=== PATIENT | female | born 1950 | race Caucasian/White ===

== ENCOUNTER 2018-06-24 06:22 | Day surgery (SDC) | payer MEDICARE, SELFPAY ==
[2018-06-18 08:40] LABS: Bacteria 0 SEEN /hpf (None Seen); Mucous, Urine 0 SEEN /hpf (<or=2+); Red Blood Cells-Urine 0 SEEN /hpf (0-5); White Blood Cells 0 SEEN /hpf (0-5)
[2018-06-18 10:07] LABS: Color, Urine Yellow (Yellow); Glucose, Dipstick Normal (Normal); Ketone-Dipstick Negative (Negative); Leukocyte Esterase-Dipstick 25 /ul (Negative); Nitrite-Dipstick Negative (Negative); Occult Blood-Urine Negative /ul (Negative); Protein-Dipstick Negative (Negative); Urine Bilirubin Dipstick Negative (Negative); Urine Clarity Clear (Clear); Urine Urobilinogen Normal (Normal); Urine pH 6.5 (5.0 - 8.0)
[2018-06-18 10:13] LABS: Squamous Epithelial Cells - UA 0-5 SEEN /hpf (5-10)
[2018-06-24 06:54] VITALS: BP 137/60; PULSE 73; RESP 14; TEMP 37.1; O2SAT 96; BMI 27.4
[2018-06-24] MEDS: Ciprofloxacin 400 MG/200 ML BAG 200 MG IV (07:30)
--- NOTE | 2018-06-24 07:49 | DCINST_ITS ---
Discharge Diet: No Restrictions Discharge Activity: May not drive while taking narcotic pain medications., May Shower, - - no tub bathing for 4 weeks. Call your doctor if you observe: Fever of 101 or Higher, Inability to urinate, Inability to have a bowel movement, Using more than one pad per hour, Shortness of breath, Calf discomfort, Uncontrolled pain Allergies/Adverse Reactions: Allergies cephalexin [From Keflex] Allergy (Verified 06/24/18 06:53) Rash diphenhydramine [From Benadryl] Allergy (Verified 06/24/18 06:53) Rash nitrofurantoin [From Macrobid] Allergy (Verified 06/24/18 06:53) Other GI UPSET Sulfa (Sulfonamide Antibiotics) Allergy (Verified 06/24/18 06:53) Chest tightness sulfamethoxazole [From Bactrim] Allergy (Verified 06/24/18 06:53) Other trimethoprim [From Bactrim] Allergy (Verified 06/24/18 06:53) Other Medications to take at Discharge Ascorbic Acid [Vitamin C] 500 mg PO DAILY@0800 06/17/18 Cholecalciferol (Vitamin D3) [Vitamin D3] 2,000 unit PO DAILY 06/17/18 Estrogens, Conjugated [Premarin] 1 dose VAGINAL UD 06/17/18 Lactobacillus Combination No.4 [Probiotic] 1 each PO DAILY 06/17/18 Pyridoxine HCl [Vitamin B6] 100 mg PO DAILY 06/17/18 Vitamin E Acid Succinate [Vitamin E] 400 unit PO DAILY 06/17/18 Ciprofloxacin [Cipro] 500 mg PO BID 06/24/18 Oxycodone HCl/Acetaminophen [Percocet 5/325] 1 - 2 tab PO Q6H PRN PRN 7 Days # 30 tab 06/24/18 The following prescriptions were given: Oxycodone HCl/Acetaminophen [Percocet 5/325] 1 - 2 tab PO Q6H PRN PRN 7 Days # 30 tab PRN Reason: Pain Primary Care Physician: Sam Elizondo MD [Primary Care Provider] - Test Results: Test results from this visit will be discussed in further detail at your follow- up appointment, if applicable. Please Follow Up With: Hafsa Valenzuela MD - in 1 week, call for appt Proposed Discharge Date: 06/24/18
--- NOTE | 2018-06-24 08:00 | MASS_PTH ---
PATIENT: NIKOLAY MANRIQUEZ [place] [facility] [id number] AGE/SX: 67/F ROOM: RE06/24/[address]: Dr. Hafsa Valenzuela MD : 1950 BED: DIS: 06/24/2018 SPEC #: [id number] RECD: 06/24/18 09:07 STATUS: SD SUPRIYA #: [id number] ROYAL: 06/24/18 08:[address]: Hafsa Valenzuela DEPT: SURGICAL PATHOLOGY RECD BY: Joseph Moreau ENTERED: 06/24/18 09:35 SP TYPE: Mass OTHR DR: Dr. Sam Elizondo MD Tissues: Urethra, NOS Procedures: Surgery Specimen Level IV HEADER OPERATION: Cystoscopy, excision urethral meatal mass (caruncle) PRE-OP DIAGNOSIS: Urethral caruncle TISSUE SUBMITTED: Urethral caruncle MICROSCOPIC DIAGNOSIS Urethral caruncle, excision: Fragments of urothelial and squamous mucosa with chronic inflammation, consistent with urethral caruncle. DASHA:cirilo 06/25/18 MICROSCOPIC DESCRIPTION Slides are reviewed. GROSS DESCRIPTION Received in fixative is one container labeled with the patient's name and designated urethral caruncle. The specimen consists of three variable sized pieces of jordan-pink soft tissue that in aggregate measure 1 x 0.7 x 0.2 cm. The specimen is totally submitted in one cassette. / DASHA:cirilo 06/24/18 TC:3 CPT: 11103
[2018-06-24] MEDS: Estrogens,Conj. 1 Tube 1 DOSE (08:19)
[2018-06-24 08:34] VITALS: BP 103/64; BP 137/60; PULSE 62; RESP 16; TEMP 36.4; O2SAT 93
[2018-06-24 08:45] VITALS: BP 112/60; BP 137/60; PULSE 63; RESP 16; O2SAT 94
--- NOTE | 2018-06-24 08:49 | PCM.IMDPSTOP ---
Immediate Post-Op Note Date of Procedure: 06/24/18 Primary Surgeon/Physician: Hafsa Valenzuela MD professor of exercise science: Hafsa Valenzuela Pre-Operative Diagnosis: urethral caruncle, atrophic vaginitis Post-Operative Diagnosis: same Surgery/Procedure Performed:: excision urethral caruncle, cystoscopy Description of Surgical Findings:: large urethral caruncle removed from 6 Oclock position. Sutured with 4-0 chromic. Normal cystoscopy Estimated Blood Loss: 5cc Specimen's removed: urethral caruncle. Type of Anesthesia:: General Special Medications: cipro, lidocaine with epinephrine - Admit VTE Documentation VTE Present on Admission: Yes VTE Mechan Device Prophylaxis: SCD's VTE Pharm Prophylaxis ordered?: No Reason prophylaxis not ordered:: Treatment Not Indicated
--- NOTE | 2018-06-24 08:52 | OP.PN_ITS ---
Immediate Post-Op Note Date of Procedure: 06/24/18 Primary Surgeon/Physician: Hafsa Valenzuela MD electronics engineer: Hafsa Valenzuela Pre-Operative Diagnosis: urethral caruncle, atrophic vaginitis Post-Operative Diagnosis: same Surgery/Procedure Performed:: excision urethral caruncle, cystoscopy Description of Surgical Findings:: large urethral caruncle removed from 6 Oclock position. Sutured with 4-0 chromic. Normal cystoscopy Estimated Blood Loss: 5cc Specimen's removed: urethral caruncle. Type of Anesthesia:: General Special Medications: cipro, lidocaine with epinephrine - Admit VTE Documentation VTE Present on Admission: Yes VTE Mechan Device Prophylaxis: SCD's VTE Pharm Prophylaxis ordered?: No Reason prophylaxis not ordered:: Treatment Not Indicated
--- NOTE | 2018-06-24 08:56 | OP.PCM_ITS ---
Problem List (1) Urethral caruncle Status: Acute (2) Vaginal atrophy Status: Acute Report of Operation Date of Procedure: 06/24/18 Pre-Operative Diagnosis: urethral caruncle, atrophic vaginitis Post-Operative Diagnosis: same Surgery/Procedure Performed:: excision urethral caruncle, cystoscopy Description of Surgical Findings:: large urethral caruncle removed from 6 Oclock position. Sutured with 4-0 chromic. Normal cystoscopy elect equip maint eng: Hafsa Valenzuela Type of Anesthesia:: General Special Medications: cipro, lidocaine with epinephrine Specimen's removed: urethral caruncle. Estimated Blood Loss (mL): 5cc Description of Procedure: The patient is a 67-year-old female who presented to the office with discomfort related to sitting on a large urethral meatal caruncle. After discussing the risks benefits and alternatives, she agreed to proceed with surgical excision of the caruncle. The patient was taken to the operating room and placed on the operating room table. Anesthesia monitored the head neck area IV access and vital signs throughout the case. Once anesthesia was a probably administered patient was placed into dorsal lithotomy position was prepped and draped in usual sterile fashion. At this time the carbuncle was easily identified and grasped using an Allis clamp. It was excised using a 15 blade. The urethral mucosa with then closed using 4-0 chromic suture. Hemostasis was achieved. A cystourethroscopy was then performed using a 70? lens. The entire bladder mucosa was identified in addition to the urethra. There were no masses, areas of erythema, ulcerations, foreign bodies identified. The anatomy of the ureteral orifices is normal. The patient's bladder was emptied, the scope was removed. The patient was injected bilaterally with lidocaine with epinephrine. Estrace cream was applied. The patient was then awakened and taken to the recovery room in good condition. There are no complications during this procedure. Grafts/Implants Used: none - Complications none - Admit VTE Documentation VTE Present on Admission: Yes VTE Mechan Device Prophylaxis: SCD's VTE Pharm Prophylaxis ordered?: No Reason prophylaxis not ordered:: Treatment Not Indicated
[2018-06-24 09:00] VITALS: BP 122/63; BP 137/60; PULSE 62; RESP 16; O2SAT 95
[2018-06-24 09:15] VITALS: BP 137/60; PULSE 62; RESP 16; TEMP 36.6; O2SAT 97
[2018-06-24 10:17] VITALS: BP 137/60; BP 140/77; PULSE 62; RESP 18; TEMP 36.1; O2SAT 99
== END 2018-06-24 10:30 | disposition home or self-care (01) ==
LOC: SDC 06:23 → AC 06:28
PROVIDERS: Family Provider Family Medicine; PCP Family Medicine; Visit Provider Urology
PROC: 0TJB8ZZ Inspection of Bladder, Via Natural or Artificial Opening Endoscopic (ICD-10-PCS; CPT 52000; principal; 2018-06-24 07:45)
DX: N36.2 Urethral caruncle (principal); N95.2 Postmenopausal atrophic vaginitis; R39.15 Urgency of urination; R15.1 Fecal smearing; R35.1 Nocturia
CPT/HCPCS: 53265; 81001; 87077; 87086; 87088; 87186; 88305; J7120; J0744; J2405

== ENCOUNTER → 2018-09-12 08:22 | Outpatient (CLI) | payer MEDICARE, SELFPAY ==
[2018-09-12 10:31] LABS: Absolute Lymphocyte Count 1.77 X10^3/ul (0.83-4.51); Absolute Neutrophil Count 1.9 X10^3/uL (2.0-7.7); Basophil# 0.02 X10^3/uL; Basophil% 0.5 % (0-1); Eosinophil# 0.07 X10^3/uL; Eosinophils% 1.7 % (0-5); Hematocrit 43.8 % (37-47); Hemoglobin 15.2 g/dl (12.0-15.0); Lymphocyte # 1.77 X10^3/ul (4.0); Lymphocyte % 42.7 % (19-41); Mean Corp Hgb Conc 34.7 g/gl (32-36); Mean Corpuscular Hgb 29.9 pg (27.0-32.0); Mean Corpuscular Volume 86.2 fL (81-99); Mean Platelet Vol. 10.9 fl (6.2-12.0); Monocyte# 0.36 X10^3/uL; Monocyte% 8.7 % (0-10); Neutrophil # 1.93 X10^3/uL (2.7-7.7); Neutrophil % 46.4 % (47-70); Platelet Count 243 K/mm3 (150-450); RBC Distribution Width CV 13.1 % (11.6-14.6); RBC Distribution Width SD 40.9 fl (35.1-43.9); Red Blood Count 5.08 M/mm3 (4.2-5.4); White Blood Count 4.2 K/mm3 (4.4-11.0)
[2018-09-12 10:35] LABS: POSITIVE COUNT NO; POSITIVE DIFFERENTIAL NO; POSITIVE MORPHOLOGY NO
[2018-09-12 10:53] LABS: ALB/GLOB Ratio 1.1 RATIO (0.9-2.4); AST(SGOT) 16 U/L (15-37); Alanine Aminotransfer ALT/SGPT 26 U/L (13-56); Albumin, Serum 3.8 g/dL (3.2-5.0); Alkaline Phosphatase 71 U/L (45-117); Anion Gap 6 (5-15); BUN 11 mg/dL (7-18); BUN/Creat Ratio 14.5 RATIO (10-20); Calcium,Total 9.1 mg/dL (8.5-10.1); Chloride 106 mmol/L (98-107); Cholesterol 213 mg/dL (200); Creatinine, Serum 0.76 mg/dL (0.55-1.02); EST Glomerular Filtration Rate 81 mL/min (>60); Est Glom Filt Rate - Afr Amer 97 mL/min (>60); Globulin 3.6 g/dL (2.2-4.2); Glucose 91 mg/dL (74-106); High Density Lipoprotein 45 mg/dL; Potassium 3.8 mmol/L (3.5-5.1); Protein, Total 7.4 g/dL (6.4-8.2); Sodium Level 141 mmol/L (136-145); T4 Free Direct 1.11 ng/dL (0.76-1.46); Triglycerides 139 mg/dL; Very Low Density Lipoprotein 28 mg/dL (5-40); Vitamin D,25 Hydroxy 25.8 ng/mL (29.95-100.01)
== END ==
PROVIDERS: Family Provider Family Medicine; PCP Family Medicine; Referring Provider Family Medicine; Visit Provider Family Medicine
DX: E04.2 Nontoxic multinodular goiter (principal); E78.00 Pure hypercholesterolemia, unspecified; E55.9 Vitamin D deficiency, unspecified
CPT/HCPCS: 36415; 80053; 80061; 82306; 84439; 84443; 85025

== ENCOUNTER 2018-09-26 06:21 | Day surgery (SDC) | payer MEDICARE, SELFPAY ==
[2018-09-26] VITALS (9 sets, daily range): BP systolic 88–153; BP diastolic 54–78; PULSE 62–82; RESP 16; TEMP 36–36.9; O2SAT 92–100; BMI 27.3
--- NOTE | 2018-09-26 07:30 | COLBX_PTH ---
PATIENT: NIKOLAY MANRIQUEZ LOC: [facility] U#:[id number] AGE/SX: 67/F ROOM: RE09/26/[address]: Dr. Gabe Colón MD : 1950 BED: DIS: 09/26/2018 SPEC #: [id number] RECD: 09/26/18 11:37 STATUS: SD SUPRIYA #: [id number] ROYAL: 09/26/18 07:[address]: Gabe Colón DEPT: SURGICAL PATHOLOGY RECD BY: Saúl Todd ENTERED: 09/26/18 11:37 SP TYPE: COLON BX OTHR DR: Dr. Phillip Baer MD Tissues: A - Ascending colon B - COLON BIOPSY Procedures: Surgery Specimen Level IV HEADER OPERATION: Colonosocpy PRE-OP DIAGNOSIS: Screening TISSUE SUBMITTED: A - Ascending colon polyp, B - Biopsy of hepatic flexure polyp MICROSCOPIC DIAGNOSIS A. FNA colon polyp, biopsy: Fragments of tubular adenoma. Fragments of fecal material. B. Hepatic flexure polyp, biopsy: Fragments of tubular adenoma. DASHA:deny 09/29/18 MICROSCOPIC DESCRIPTION Slides are reviewed. GROSS DESCRIPTION A. Received is one container labeled with the patient name and designated ascending colon polyp. The specimen consists of multiple irregular fragments mixed with fecal material that in aggregate measure 1.5 x 0.2 x 0.1 cm. The specimen is totally submitted in one cassette. B. Received is one container labeled with the patient name and designated biopsy of the hepatic flexure polyp. The specimen consists of two irregular fragments of light jordan soft tissue that in aggregate measure 0.3 x 0.2 x 0.1 cm. The specimen is totally submitted in one cassette. / DASHA:deny 09/26/18 TC: 1 CPT: 80584 x2
--- NOTE | 2018-09-26 07:36 | PCM.HP.STD ---
History of Present Illness Date of Admission: 09/26/18 The patient is a 67 year old F screening for intestinal cancer. She has some fecal incontinence. She has a brother who had colon cancer. She has never previously had a colonoscopy. She denies any abdominal pain bright red blood per rectum or melena. She denies any cardiac pulmonary or renal disease. Never had any DVT. Past Medical History Allergies sulfamethoxazole [From Bactrim] Allergy (Unknown, Verified 09/23/18 13:52) Other trimethoprim [From Bactrim] Allergy (Unknown, Verified 09/23/18 13:52) Other cephalexin [From Keflex] Allergy (Verified 09/23/18 13:52) Rash diphenhydramine [From Benadryl] Allergy (Verified 09/23/18 13:52) Rash nitrofurantoin [From Macrobid] Allergy (Verified 09/23/18 13:52) Other GI UPSET Sulfa (Sulfonamide Antibiotics) Allergy (Verified 09/23/18 13:52) Chest tightness Home Medications: Ambulatory Orders Medication Instructions Recorded Ascorbic Acid [Vitamin C] 500 mg PO DAILY@0800 06/17/18 Cholecalciferol (Vitamin D3) 4,000 unit PO LUNCH 06/17/18 [Vitamin D3] Estrogens, Conjugated [Premarin] 1 dose VAGINAL UD 06/17/18 Lactobacillus Combination No.4 1 each PO DAILY 06/17/18 [Probiotic] Pyridoxine HCl [Vitamin B6] 100 mg PO QWEEK 06/17/18 Vitamin E Acid Succinate [Vitamin 400 unit PO DAILY 06/17/18 E] Garlic Extract [Garlipure] 600 mg PO DAILY 09/23/18 Smoking Status: Never smoker Review of Systems Constitutional: Denies: Anorexia HEENT: Denies: Difficulty Swallowing Cardiovascular: Denies: Chest Pain Respiratory: Denies: Cough Gastrointestinal: Denies: Abdominal Pain Endocrine: Denies: Change in Body Habitus VTE Information - Inpt Only VTE Present on Admission: No - Physical Exam General: Alert, Oriented x3, Cooperative, No apparent distress HEENT: Atraumatic Oral: Moist Mucosa Neck: Supple Lungs: Clear to auscultation Cardiovascular: Regular rate, Regular Rhythm Abdomen: Bowel Sounds Present, Soft, Non Tender Extremities: No clubbing Skin: No rashes Musculoskeletal: No Tenderness to Palpation of Joints or Extremities Neurological: Cranial nerves II-XII grossly intact Psych/Mental Status: Normal Affect Vital Signs Temp Pulse Resp BP Pulse Ox 98.4 F 82 16 135/60 H 99 09/26/18 06:53 09/26/18 06:53 09/26/18 06:53 09/26/18 06:53 09/26/18 06:53 Oxygen Delivery Method Room Air Weight: 158 lb 15.253 oz Body Mass Index (BMI) 27.3 Assessment/Plan All Active Problems Urethral caruncle (Acute) Vaginal atrophy (Acute) I recommend a colonoscopy with possible biopsy or polypectomy is indicated. She is aware of the technique, benefits, risks, alternatives. She has had an opportunity to ask and have questions answered. She presents via our open access program. Gabe Colón M.D., F.A.C.S.
--- NOTE | 2018-09-26 08:12 | OP.ENDO_ITS ---
Patient Name: Gosia Krishna Procedure Date: 09/26/2018 7:30 AM Date of : 1950 Age: 67 Procedure: Colonoscopy Indications: Family history of colon cancer in a first-degree relative Providers: Gabe Colón MD Referring MD: Gabe Colón MD Medicines: Midazolam 3.5 mg IV, Meperidine 100 mg IV Patient Profile: Last Colonoscopy: none. The patient's first colonoscopy is today. Complications: No immediate complications. Procedure: Pre-Anesthesia Assessment: - Prior to the procedure, a History and Physical was performed, and patient medications and allergies were reviewed. The patient's tolerance of previous anesthesia was also reviewed. The risks and benefits of the procedure and the sedation options and risks were discussed with the patient. All questions were answered, and informed consent was obtained. Prior Anticoagulants: The patient has taken no previous anticoagulant or antiplatelet agents. ASA Grade Assessment: II - A patient with mild systemic disease. After reviewing the risks and benefits, the patient was deemed in satisfactory condition to undergo the procedure. After I obtained informed consent, the scope was passed under direct vision. Throughout the procedure, the patient's blood pressure, pulse, and oxygen saturations were monitored continuously. The colonoscope was introduced through the anus and advanced to the cecum, identified by appendiceal orifice and ileocecal valve. The colonoscopy was performed without difficulty. The patient tolerated the procedure well. The quality of the bowel preparation was good. The ileocecal valve was photographed. Moderate Sedation: Moderate (conscious) sedation was personally administered by the endoscopist. The following parameters were monitored: oxygen saturation, heart rate, blood pressure, and response to care. Total physician intraservice time was 15 minutes. Scope In: 7:43:03 AM Scope Withdrawal Time 0 hours 16 minutes 46 seconds Scope Out: 8:05:49 AM Total Procedure Duration Time 0 hours 22 minutes 46 seconds Findings: The digital rectal exam findings include non-thrombosed external hemorrhoids, non-thrombosed internal hemorrhoids and internal hemorrhoids that prolapse with straining, but spontaneously regress to the resting position (Grade II). Pertinent negatives include normal sphincter tone. A 8 mm polyp was found in the mid ascending colon. The polyp was sessile. The polyp was removed with a hot snare. The polyp was removed with a saline injection-lift technique using a hot snare. Resection and retrieval were complete. A 4 mm polyp was found in the hepatic flexure. The polyp was sessile. The polyp was removed with a cold biopsy forceps. Resection and retrieval were complete. Multiple diverticula were found in the sigmoid colon. Impression: - Non-thrombosed external hemorrhoids, non-thrombosed internal hemorrhoids and internal hemorrhoids that prolapse with straining, but spontaneously regress to the resting position (Grade II) found on digital rectal exam. - One 8 mm polyp in the mid ascending colon, removed with a hot snare and removed using injection-lift and a hot snare. Resected and retrieved. - One 4 mm polyp at the hepatic flexure, removed with a cold biopsy forceps. Resected and retrieved. - Diverticulosis in the sigmoid colon. Recommendation: - Discharge patient to home. - Resume previous diet. - Continue present medications. - Telephone my office for pathology results in 1 week. - Repeat colonoscopy in 3 years for surveillance. Procedure Code(s): --- Professional --- 18002, Colonoscopy, flexible; with removal of tumor(s), polyp(s), or other lesion(s) by snare technique 22609, Colonoscopy, flexible; with directed submucosal injection(s), any substance 94066, 59, Colonoscopy, flexible; with biopsy, single or multiple 42993, 59, Moderate sedation services provided by the same physician or other qualified health manager of care performing the diagnostic or therapeutic service that the sedation supports, requiring the presence of an independent trained observer to assist in the monitoring of the patient's level of consciousness and physiological status; initial 15 minutes of intraservice time, patient age 5 years or older Diagnosis Code(s): --- Professional --- K64.1, Second degree hemorrhoids K64.4, Residual hemorrhoidal skin tags D12.2, Benign neoplasm of ascending colon D12.3, Benign neoplasm of transverse colon (hepatic flexure or splenic flexure) Z80.0, Family history of malignant neoplasm of digestive organs K57.30, Diverticulosis of large intestine without perforation or abscess without bleeding CPT copyright 2017 [employer]. All rights reserved. The codes documented in this report are preliminary and upon business machine operator review may be revised to meet current compliance requirements. Gabe Colón MD 09/26/2018 8:11:49 AM This report has been signed electronically. Number of Addenda: 0 Note Initiated On: 09/26/2018 7:30 AM
== END 2018-09-26 09:51 | disposition home or self-care (01) ==
LOC: EN 06:21 → AC 06:22
PROVIDERS: Family Provider Family Medicine; PCP Family Medicine; Referring Provider Surgery; Visit Provider Surgery
PROC: 0DJD8ZZ Inspection of Lower Intestinal Tract, Via Natural or Artificial Opening Endoscopic (ICD-10-PCS; CPT 45378; principal; 2018-09-26 07:25)
DX: D12.2 Benign neoplasm of ascending colon (principal); D12.3 Benign neoplasm of transverse colon; K64.1 Second degree hemorrhoids; K64.4 Residual hemorrhoidal skin tags; K57.30 Diverticulosis of large intestine without perforation or abscess without bleeding; Z80.0 Family history of malignant neoplasm of digestive organs
CPT/HCPCS: 45380; 45381; 45385; 88305; 99152; 99153; J7120

== ENCOUNTER → 2018-09-29 10:45 | Outpatient (CLI) | payer MEDICARE, SELFPAY ==
--- NOTE | 2018-09-29 10:45 | VUL_PTH ---
PATIENT: NIKOLAY MANRIQUEZ LOC: [facility] U#:[id number] AGE/SX: 74/F ROOM: RE09/29/[address]: Dr. Magalys Ortiz MD : 1950 BED: DIS: SPEC #: [id number] RECD: 09/29/18 15:38 STATUS: SD SUPRIYA #: [id number] ROYAL: 09/29/18 10:[address]: Magalys Ortiz DEPT: SURGICAL PATHOLOGY RECD BY: Joseph Moreau ENTERED: 09/30/18 10:22 SP TYPE: VULVA BX OTHR DR: Dr. Phillip Baer MD Tissues: Vulva, NOS Procedures: Surgery Specimen Level IV HEADER OPERATION: Punch biopsy PRE-OP DIAGNOSIS: Skin irritation TISSUE SUBMITTED: Labial biopsy MICROSCOPIC DIAGNOSIS Labial lesion, punch biopsy: Dermal chronic inflammation. Negative for malignancy. SJ:sp 10/01/18 MICROSCOPIC DESCRIPTION Slides are reviewed. GROSS DESCRIPTION Received in fixative is one container labeled with the patient's name and designated labial lesion. The specimen consists of a piece of jordan white skin measuring 0.3 x 0.3 x 0.1 cm in one cassette. DASHA:deny 09/30/18 TC: 3 CPT: 51483
== END ==
PROVIDERS: Family Provider Family Medicine; PCP Family Medicine; Referring Provider Obstetrics & Gynecology; Visit Provider Obstetrics & Gynecology
DX: L98.9 Disorder of the skin and subcutaneous tissue, unspecified (principal)
CPT/HCPCS: 88305

== ENCOUNTER → 2019-04-09 11:42 | Outpatient (CLI) | payer MEDICARE, SELFPAY ==
[2018-09-26 06:53] VITALS: BMI 27.3
[2019-04-09 14:24] LABS: Anion Gap 4 (5-15); BUN 9 mg/dL (7-18); BUN/Creat Ratio 12.8 RATIO (10-20); Calcium,Total 9.2 mg/dL (8.5-10.1); Chloride 108 mmol/L (98-107); EST Glomerular Filtration Rate 88 mL/min (>60); Est Glom Filt Rate - Afr Amer 107 mL/min (>60); Glucose 92 mg/dL (74-106); Potassium 4.1 mmol/L (3.5-5.1); Sodium Level 140 mmol/L (136-145)
[2019-04-09 14:38] LABS: Vitamin D,25 Hydroxy 38.6 ng/mL (29.95-100.01)
== END ==
PROVIDERS: Family Provider Family Medicine; PCP Family Medicine; Referring Provider Family Medicine; Visit Provider Family Medicine
DX: E55.9 Vitamin D deficiency, unspecified (principal); E04.2 Nontoxic multinodular goiter
CPT/HCPCS: 36415; 80048; 82306

== ENCOUNTER → 2019-10-07 09:50 | Outpatient (CLI) | payer MEDICARE, SELFPAY ==
[2019-10-07 12:51] LABS: Vitamin D,25 Hydroxy 31.5 ng/mL (29.95-100.01)
[2019-10-07 12:52] LABS: Cholesterol 238 mg/dL (200); Creatinine, Serum 0.72 mg/dL (0.55-1.02); EST Glomerular Filtration Rate 86 mL/min (>60); Est Glom Filt Rate - Afr Amer 104 mL/min (>60); High Density Lipoprotein 37 mg/dL; Thyroid Stim Hormone (TSH) 1.22 uIU/mL (0.358-3.74); Triglycerides 264 mg/dL; Very Low Density Lipoprotein 53 mg/dL (5-40)
== END ==
PROVIDERS: Family Provider Family Medicine; PCP Family Medicine; Referring Provider Family Medicine; Visit Provider Family Medicine
DX: E55.9 Vitamin D deficiency, unspecified (principal); E78.00 Pure hypercholesterolemia, unspecified
CPT/HCPCS: 36415; 80061; 82306; 82565; 84443

== ENCOUNTER → 2020-03-30 10:13 | Outpatient (CLI) | payer MEDICARE, SELFPAY ==
--- NOTE | 2020-03-30 10:16 | BI_ITS ---
MAMMOGRAPHY - BILATERAL SCREENING REASON FOR EXAM: Female, 69 years old. Routine annual screening examination. PERTINENT HISTORY: Sister with breast cancer. TECHNIQUE: Digital bilateral breast brea (3D mammographic acquisition) in the CC and MLO projections. 2-D mediolateral oblique (MLO) and craniocaudad (CC) views of both breasts were obtained. CAD: Full Field Digital Mammography with Computer Added Detection was performed. COMPARISON: Comparison is made with prior examination dated April 01, 2018. FINDINGS: Breast Composition: The breasts are heterogeneously dense, which may obscure small masses. There are no dominant masses or suspicious calcifications. Stable calcifications in the deep axillary region of the left breast. No other significant abnormalities are identified. There has been no significant change since the prior study. BI/SCREEN MAMM (CAD) W/BREA BILAT IMPRESSION: Stable bilateral screening mammogram. Yearly follow-up mammogram recommended. (A) ASSESSMENT CATEGORY: BIRADS Category 2: Benign. A letter regarding these results will be sent to the patient by the facility within 30 days. Approximately 10% of breast cancers are not detected by mammography. A normal mammogram should not delay biopsy of a clinically suspicious abnormality. [id number] Electronically Signed: Booker Lundberg, at 12:25 EDT , Service support ,
== END ==
PROVIDERS: PCP Family Medicine; Referring Provider Family Medicine; Visit Provider Family Medicine
DX: Z12.31 Encounter for screening mammogram for malignant neoplasm of breast (principal); Z80.3 Family history of malignant neoplasm of breast
CPT/HCPCS: 77063; 77067

== ENCOUNTER → 2021-09-11 | Outpatient (CLI) | payer MEDICARE, SELFPAY | END | disposition home or self-care (01) | PROVIDERS: PCP Family Medicine; Visit Provider Family Medicine | DX: J06.9 Acute upper respiratory infection, unspecified (principal) | CPT/HCPCS: 87633; 87635; U0005; U0003 ==

== ENCOUNTER → 2022-05-30 | Outpatient (CLI) | payer MEDICARE, SELFPAY ==
[2022-05-30 12:23] LABS: Absolute Neutrophil Count 3.8 X10^3/uL (2.0-7.7); Basophil# 0.03 X10^3/uL; Basophil% 0.5 % (0-1); Eosinophil# 0.04 X10^3/uL; Eosinophils% 0.7 % (0-5); Hematocrit 45.2 % (37-47); Hemoglobin 15.2 g/dL (12.0-15.0); Lymphocyte % 29.7 % (19-41); Mean Corp Hgb Conc 33.6 g/dL (32-36); Mean Corpuscular Hgb 29.5 pg (27.0-32.0); Mean Corpuscular Volume 87.8 fL (81-99); Mean Platelet Vol. 11.5 fl (6.2-12.0); Monocyte# 0.41 X10^3/uL; Monocyte% 6.8 % (0-10); NRBC Flagged by Analyzer 0 % (0-5); Neutrophil # 3.77 X10^3/uL (2.7-7.7); Platelet Count 238 K/mm3 (150-450); RBC Distribution Width CV 12.4 % (11.6-14.6); RBC Distribution Width SD 39.9 fl (35.1-43.9); Red Blood Count 5.15 M/mm3 (4.2-5.4); White Blood Count 6.1 K/mm3 (4.4-11.0)
[2022-05-30 13:02] LABS: CRP < 2.90 mg/L (0.0-3.0); Creatinine, Serum 0.66 mg/dL (0.55-1.02); EST Glomerular Filtration Rate 94 mL/min (>60); Est Glom Filt Rate - Afr Amer 113 mL/min (>60)
== END | disposition home or self-care (01) ==
LOC: MFPLAB 10:39
PROVIDERS: PCP Family Medicine; Referring Provider Family Medicine; Visit Provider Family Medicine
DX: R59.0 Localized enlarged lymph nodes (principal)
CPT/HCPCS: 36415; 82565; 85025; 86140

== ENCOUNTER → 2022-06-04 | Outpatient (CLI) | payer MEDICARE, SELFPAY ==
[2022-06-04 12:51] LABS: Syphilis Antibodies Non-reactive
[2022-06-04 14:32] LABS: Internal QC Validated? YES +Cl - CLEAR BKGD; Monotest Negative (Negative)
[2022-06-07 15:42] LABS: Mumps Antibody,IgG > 300.0 AU/mL (Immune >10.9)
== END | disposition home or self-care (01) ==
LOC: MFPLAB 10:06
PROVIDERS: PCP Family Medicine; Visit Provider Family Medicine
DX: R59.0 Localized enlarged lymph nodes (principal)
CPT/HCPCS: 36415; 86308; 86735; 86780

== ENCOUNTER → 2023-01-11 | Outpatient (CLI) | payer MEDICARE, SELFPAY ==
--- NOTE | 2023-01-11 11:24 | RAD_ITS ---
STUDY: X-RAY - PARANASAL SINUSES REASON FOR EXAM: Female, 72 years old. sinus congestion TECHNIQUE: 3 view(s) of the paranasal sinuses were obtained. COMPARISON: None. FINDINGS: Normal visualized frontal, maxillary, ethmoidal and sphenoid sinuses. Normal visualized facial bones. The soft tissue structures are unremarkable. RAD/Sinuses min 3 Views IMPRESSION: Normal x-rays of the paranasal sinuses. Electronically Signed: Abiel Browne MD at 17:33 EST ,
[2023-01-11 15:47] LABS: Basophil# 0.04 X10^3/uL; Basophil% 0.8 % (0-1); Eosinophil# 0.13 X10^3/uL; Eosinophils% 2.7 % (0-5); Hematocrit 44.8 % (37-47); Hemoglobin 15.3 g/dL (12.0-15.0); Mean Corp Hgb Conc 34.2 g/dL (32-36); Mean Corpuscular Hgb 30.3 pg (27.0-32.0); Mean Corpuscular Volume 88.7 fL (81-99); Mean Platelet Vol. 11.1 fl (6.2-12.0); Monocyte# 0.38 X10^3/uL; Monocyte% 7.9 % (0-10); NRBC Flagged by Analyzer 0 % (0-5); Neutrophil # 2.01 X10^3/uL (2.7-7.7); Neutrophil % 42.2 % (47-70); Platelet Count 261 K/mm3 (150-450); RBC Distribution Width CV 12.5 % (11.6-14.6); RBC Distribution Width SD 40.7 fl (35.1-43.9); Red Blood Count 5.05 M/mm3 (4.2-5.4); White Blood Count 4.8 K/mm3 (4.4-11.0)
[2023-01-11 16:07] LABS: ALB/GLOB Ratio 1.1 RATIO (0.9-2.4); AST(SGOT) 22 U/L (15-37); Alanine Aminotransfer ALT/SGPT 27 U/L (13-56); Albumin, Serum 3.9 g/dL (3.2-5.0); Alkaline Phosphatase 84 U/L (45-117); Anion Gap 8 (5-15); BUN 11 mg/dL (7-18); BUN/Creat Ratio 15.3 RATIO (10-20); Calcium,Total 9.2 mg/dL (8.5-10.1); Chloride 104 mmol/L (98-107); Cholesterol 238 mg/dL (200); Creatinine, Serum 0.72 mg/dL (0.55-1.02); EST Glomerular Filtration Rate 85 mL/min (>60); Est Glom Filt Rate - Afr Amer 102 mL/min (>60); Globulin 3.5 g/dL (2.2-4.2); Glucose 86 mg/dL (74-106); High Density Lipoprotein 40 mg/dL; Potassium 3.7 mmol/L (3.5-5.1); Protein, Total 7.4 g/dL (6.4-8.2); Sodium Level 139 mmol/L (136-145); Thyroid Stim Hormone (TSH) 0.85 uIU/mL (0.358-3.74); Triglycerides 224 mg/dL; Very Low Density Lipoprotein 45 mg/dL (5-40)
== END | disposition home or self-care (01) ==
LOC: MTLAB 11:20
PROVIDERS: PCP Family Medicine; Referring Provider Family Medicine; Visit Provider Family Medicine
DX: Z00.00 Encounter for general adult medical examination without abnormal findings (principal); D12.6 Benign neoplasm of colon, unspecified; E78.00 Pure hypercholesterolemia, unspecified; R09.81 Nasal congestion
CPT/HCPCS: 36415; 70220; 80053; 80061; 84443; 85025

== ENCOUNTER 2023-04-02 05:19 | Day surgery (SDC) | payer MEDICARE, SELFPAY ==
[2023-04-02] VITALS (12 sets, daily range): BP systolic 83–161; BP diastolic 48–88; PULSE 66–82; RESP 14–16; TEMP 36.6–36.7; O2SAT 93–98; BMI 29.1
[2023-04-02] MEDS: Lactated Ringers 1,000 ML 15 ML IV (05:55)
--- NOTE | 2023-04-02 06:04 | PCM.HP.STD ---
[facility] - General General Date of Service: 04/02/23 Chief Complaint: Personal history of colon polyps [facility] Yvette MANRIQUEZ, is a 72 F who presents via open access today. 2018 did a colonoscopy for her and removed 2 polyps. She has a family history of the brother who had colon cancer. She has no specific concerns or complaints today. [facility] Medical History (Updated 04/02/23 @ 06:[address] Gabe Colón MD) Diverticulosis High cholesterol History of stress test Hx of adenomatous polyp of colon Non-smoker Post-menopausal Wears dentures Wears glasses Home Medications ascorbic acid (vitamin C) 500 mg tablet (Vitamin C) 500 mg PO DAILY@0800 supplement 06/17/18 [History Last Taken Unknown] cholecalciferol (vitamin D3) 50 mcg (2,000 unit) capsule (Vitamin D3) 4,000 unit PO LUNCH supplement 06/17/18 [History Last Taken Unknown] lactobacillus combination no.4 3 billion cell capsule (Probiotic) 1 ea PO DAILY supplement 06/17/18 [History Last Taken Unknown] vitamin E succinate 268 mg (400 unit) tablet 400 unit PO DAILY supplement 06/17/18 [History Last Taken Unknown] garlic extract 600 mg tablet (Garlipure) 600 mg PO DAILY cholesterol 09/23/18 [History Last Taken Unknown] fish, borage, flaxseed oils-omega 3,6,9 comb no.1 1,200 mg capsule ([place] 3-6-9) 1 cap PO DAILY 02/22/23 [History Last Taken Unknown] Allergy/AdvReac Type Severity Reaction Status Date / Time sulfamethoxazole Allergy Unknown Other Verified 04/02/23 05:51 [From Bactrim] trimethoprim [From Bactrim] Allergy Unknown Other Verified 04/02/23 05:51 cephalexin [From Keflex] Allergy Rash Verified 04/02/23 05:51 diphenhydramine Allergy Rash Verified 04/02/23 05:51 [From Benadryl] nitrofurantoin Allergy Other Verified 04/02/23 05:51 [From Macrobid] Sulfa (Sulfonamide Allergy Chest Verified 04/02/23 05:51 Antibiotics) tightness Family History (Updated 02/22/23 @ 14:19 by Callie Foster) Brother Colon cancer Sister Breast cancer Father CKD (chronic kidney disease) Dialysis patient Mother Hx of CABG Diabetes Glaucoma Surgical History History of colonoscopy Social History (Updated 02/22/23 @ 14:21 by Callie Foster) household members: other details: 2 sisters housing: house current occupational status: employed Smoking Status: Never smoker alcohol intake: never ROS Constitutional Constitutional: Reports systems reviewed and no addt'l complaints, except as documented Cardiovascular Cardiovascular: Denies chest pain Respiratory/Chest Respiratory/Chest: Denies shortness of breath at rest Gastrointestinal Gastrointestinal: Denies abdominal pain, change in bowel habits, hematochezia or melena Vital Signs Vital Signs Vital Signs: 04/02/23 05:52 04/02/23 05:52 Temperature 97.8 F Temperature Source Temporal Pulse Rate 81 Respiratory Rate 16 Respiratory Pattern Normal Blood Pressure 143/64 H Blood Pressure Mean 90 Blood Pressure Source Monitor Blood Pressure Position Sitting Blood Pressure Location Right Arm Pulse Ox 97 Oxygen Delivery Method Room Air Weight Weight: 175 lb 0.752 oz Body Mass Index (BMI) 29.1 Physical Exam Const alert, oriented x3 and no apparent distress General Appearance: cooperative and comfortable Eyes General Eye: normal appearance of both eyes Neck General: normal visual inspection Chest inspection of chest normal Resp Effort and Inspection: able to speak in complete sentences and symmetric chest movement Auscultation: clear to auscultation bilaterally Cardio regular rate and regular rhythm GI soft to palpation, non-tender and non-distended Extremity no calf tenderness Neuro oriented x3 Psych thought process normal Assessment & Plan Assessment/Plan (1) Hx of adenomatous polyp of colon: PLAN: The patient presents via open access today for a colonoscopy with possible biopsy or polypectomy as indicated. She is aware of the technique, benefit, risk, alternatives. She has had an opportunity to ask and have questions answered. We will proceed as noted. Previous colonoscopy September 2018 Gabe Colón M.D., F.A.C.S.
[2023-04-02] MEDS: Midazolam 5 MG/ML Syringe (06:30)
--- NOTE | 2023-04-02 07:00 | OP.COLON_ITS ---
Patient Name: Gosia Krishna Procedure Date: 04/02/2023 6:31 AM Date of : 1950 Age: 72 Procedure: Colonoscopy Indications: High risk colon cancer surveillance: Personal history of colonic polyps Providers: Gabe Colón MD Referring MD: Gabe Colón MD Medicines: Midazolam 4.5 mg IV, Meperidine 100 mg IV Patient Profile: Last Colonoscopy: September 2018. Complications: No immediate complications. Procedure: Pre-Anesthesia Assessment: - Prior to the procedure, a History and Physical was performed, and patient medications and allergies were reviewed. The patient's tolerance of previous anesthesia was also reviewed. The risks and benefits of the procedure and the sedation options and risks were discussed with the patient. All questions were answered, and informed consent was obtained. Prior Anticoagulants: The patient has taken no previous anticoagulant or antiplatelet agents. ASA Grade Assessment: II - A patient with mild systemic disease. After reviewing the risks and benefits, the patient was deemed in satisfactory condition to undergo the procedure. After I obtained informed consent, the scope was passed under direct vision. Throughout the procedure, the patient's blood pressure, pulse, and oxygen saturations were monitored continuously. The Colonoscope was introduced through the anus and advanced to the cecum, identified by appendiceal orifice and ileocecal valve. The colonoscopy was somewhat difficult due to a tortuous colon. Successful completion of the procedure was aided by applying abdominal pressure. The patient tolerated the procedure well. The quality of the bowel preparation was good. The ileocecal valve and the appendiceal orifice were photographed. Moderate Sedation: Moderate (conscious) sedation was personally administered by the endoscopist. The following parameters were monitored: oxygen saturation, heart rate, blood pressure, and response to care. Total physician intraservice time was 15 minutes. Scope In: 6:37:56 AM Scope Withdrawal Time 0 hours 7 minutes 29 seconds Scope Out: 6:55:28 AM Total Procedure Duration Time 0 hours 17 minutes 32 seconds Findings: The digital rectal exam findings include non-thrombosed external hemorrhoids, non-thrombosed internal hemorrhoids and internal hemorrhoids that prolapse with straining, but spontaneously regress to the resting position (Grade II). The colon (entire examined portion) was moderately tortuous. Advancing the scope required changing the patient to a supine position and using manual pressure. The exam was otherwise without abnormality. Impression: - Non-thrombosed external hemorrhoids, non-thrombosed internal hemorrhoids and internal hemorrhoids that prolapse with straining, but spontaneously regress to the resting position (Grade II) found on digital rectal exam. - Tortuous colon. - The examination was otherwise normal. - No specimens collected. Recommendation: - Discharge patient to home. - Resume previous diet. - Continue present medications. - Repeat colonoscopy in 5 years for surveillance. Procedure Code(s): --- Professional --- 71744, Colonoscopy, flexible; diagnostic, including collection of specimen(s) by brushing or washing, when performed (separate procedure) 74753, 59, Moderate sedation services provided by the same physician or other qualified health day care attendant performing the diagnostic or therapeutic service that the sedation supports, requiring the presence of an independent trained observer to assist in the monitoring of the patient's level of consciousness and physiological status; initial 15 minutes of intraservice time, patient age 5 years or older Diagnosis Code(s): --- Professional --- Z86.010, Personal history of colonic polyps K64.1, Second degree hemorrhoids K64.4, Residual hemorrhoidal skin tags Q43.8, Other specified congenital malformations of intestine CPT copyright 2017 [employer]. All rights reserved. The codes documented in this report are preliminary and upon fire support specialist review may be revised to meet current compliance requirements. Gabe Colón MD 04/02/2023 7:00:00 AM This report has been signed electronically. Number of Addenda: 0 Note Initiated On: 04/02/2023 6:31 AM
--- NOTE | 2023-04-02 07:01 | OP.CCLET_ITS ---
04/02/2023 Phillip Baer [address] [facility] [address] [place] [address] Re : Colonoscopy procedure for Gosiahank Krishna Dear Dr. Baer This procedure was performed on Sunday, April 02, 2023. My impressions and recommendations are as follows: Impressions : - Non-thrombosed external hemorrhoids, non-thrombosed internal hemorrhoids and internal hemorrhoids that prolapse with straining, but spontaneously regress to the resting position (Grade II) found on digital rectal exam. - Tortuous colon. - The examination was otherwise normal. - No specimens collected. Recommendations : - Discharge patient to home. - Resume previous diet. - Continue present medications. - Repeat colonoscopy in 5 years for surveillance. My findings are described in the full procedure note, which is enclosed. If I can be of further assistance, please feel free to contact me at Doctor phone number(s): Work: . Sincerely, Gabe Colón MD 04/02/2023 7:00:00 AM This report has been signed electronically.
== END 2023-04-02 08:59 | disposition home or self-care (01) ==
LOC: EN 05:20 → AC 05:21
PROVIDERS: PCP Family Medicine; Referring Provider Family Medicine; Visit Provider Surgery
PROC: 0DJD8ZZ Inspection of Lower Intestinal Tract, Via Natural or Artificial Opening Endoscopic (ICD-10-PCS; CPT 45378; principal; 2023-04-02 06:25)
DX: Q43.8 Other specified congenital malformations of intestine (principal); K64.1 Second degree hemorrhoids; K64.4 Residual hemorrhoidal skin tags; Z86.010 Personal history of colon polyps; Z80.0 Family history of malignant neoplasm of digestive organs
CPT/HCPCS: 45378; 99152; 99153; J7120

== ENCOUNTER → 2023-10-29 | Outpatient (CLI) | payer MEDICARE, SELFPAY ==
--- NOTE | 2023-11-03 16:29 | STRESSREP_ITS ---
Stress Test Report Date: 10/29/2023 Procedure: Exercise tolerance test Indications: Chest pain Consent: Per the patient Procedure: The patient exercised on a Oc protocol for 3 minutes achieving a peak heart rate of 137 bpm (92% predicted maximal heart rate) with a peak blood pressure 154/72 mmHg and a peak MET capacity of approximately 4.6 MET's. The baseline ECG demonstrated normal sinus rhythm. The peak exercise ECG demonstrated no significant ischemic changes. [There were no cardiac dysrhythmias pretest, during exercise, or recovery]. The functional capacity was considered normal for age. The patient had no complaint of chest discomfort during exercise or recovery. The examination was discontinued secondary to leg discomfort. Impression: 1. Technically adequate (percent predicted maximal heart rate greater than 85%) exercise tolerance test 2. Stress test is negative for exercise-induced chest pain. 3. Stress test test is negative for exercise-induced EKG changes of ischemia. 4. Functional capacity is normal for age This note was generated with [employer] software. It may contain incorrect words, spelling, and punctuation that were not noted in checking the note before signing.
== END | disposition home or self-care (01) ==
PROVIDERS: PCP Family Medicine; Referring Provider Family Medicine; Visit Provider Family Medicine
DX: R07.89 Other chest pain (principal)
CPT/HCPCS: 93017

== ENCOUNTER → 2025-05-12 | Outpatient (CLI) | payer MEDICARE, SELFPAY ==
[2025-05-12 12:37] LABS: Absolute Lymphocyte Count 2.33 X10^3/uL (0.83-4.51); Absolute Neutrophil Count 1.9 X10^3/uL (2.0-7.7); Basophil# 0.02 X10^3/uL; Basophil% 0.4 % (0-1); Eosinophil# 0.08 X10^3/uL; Eosinophils% 1.6 % (0-5); Hematocrit 41.6 % (37-47); Hemoglobin 14.1 g/dL (12.0-15.0); Lymphocyte # 2.33 X10^3/ul (0.83-4.51); Lymphocyte % 47.8 % (19-41); Mean Corp Hgb Conc 33.9 g/dL (32-36); Mean Corpuscular Hgb 29.9 pg (27.0-32.0); Mean Corpuscular Volume 88.1 fL (81-99); Monocyte# 0.57 X10^3/uL; Monocyte% 11.7 % (0-10); NRBC Flagged by Analyzer 0 % (0-5); Neutrophil # 1.86 X10^3/uL (2.7-7.7); Neutrophil % 38.3 % (47-70); Platelet Count 243 K/mm3 (150-450); RBC Distribution Width CV 12.7 % (11.6-14.6); Red Blood Count 4.72 M/mm3 (4.2-5.4); White Blood Count 4.9 K/mm3 (4.4-11.0)
[2025-05-12 13:30] LABS: Anion Gap 11 (5-15); BUN 12 mg/dL (4-19); Calcium,Total 9.5 mg/dL (7.6-11.0); Carbon Dioxide 23.8 mmol/L (21.0-32.0); Chloride 104 mmol/L (98-108); Creatinine, Serum 0.71 mg/dL (0.70-1.20); EST Glomerular Filtration Rate 90 (>60); Glucose 98 mg/dL (70-99); Potassium 3.9 mmol/L (3.3-5.1); Sodium Level 139 mmol/L (133-145)
--- OUTSIDE RECORDS SUMMARY | 2025-05-12 20:40 | XMS RPT_ITS | CCD ---
Author Organization [facility] Care Team Providers Care Photographer Aerial Name Role Phone Miguelito Barbour Attending Unavailable Phillip Baer Referring Unavailable Phillip Baer Primary Care Unavailable Allergies Allergy Classification Reported Allergen(s) Allergy Type Date of Onset Reaction(s) Facility (4 sources) Cephalexin Drug Allergy 09-23-20 Rash [facility] (4 sources) diphenhydrAMINE Drug Allergy 09-23-20 18 [facility] (4 sources) Nitrofurantoin Drug Allergy 09-23-20 18 Other [facility] (4 sources) Sulfamethoxazole Drug Allergy 09-23-20 18 Other [facility] (5 sources) Sulfonamides (Antibiotic); Translations: [Sulfa (Sulfonamide Antibiotics)] Allergy to substance 09-23-20 Chest tightness [facility] (4 sources) Trimethoprim Drug Allergy 09-23-20 18 Other [facility] (1 source) Cephalexin Drug Allergy 11-23-19 25 [facility] Repository (1 source) diphenhydrAMINE Drug Allergy 11-23-19 25 [facility] Rep[facility] (1 source) Nitrofurantoin Drug Allergy 11-23-19 25 [facility] Rep[facility] (1 source) Sulfamethoxazole Drug Allergy 11-23-19 25 [facility] Rep[facility] (1 source) Trimethoprim Drug Allergy 11-23-19 [facility] Repository Medications Current Medications Medication Drug Class(es) Dates Sig (Normalized) Sig (Original) estrogens, conjugated (fci) 0.625 mg/ml vaginal cream (3 sources) Estrogen Start: 06-17-2018 Conjugated Estrogens (Premarin) 1 DOSE Tube Active 1 DOSE VAGINAL DIRECTED June 16, 2018 11:00pm predniSONE 10 mg oral tablet (1 source) Start: 06-24-2023 take 4 tablets by mouth once daily, then take 3 tablets by mouth once daily, then take 2 tablets by mouth once daily, then take 1 tablet by mouth once daily Prednisone Active 10 MG PO As Directed 30 June 23, 2023 11:00pm 4 tablets daily x3 days, then 3 tablets daily x3 days, then 2 tablets daily x3 days, then 1 tablet daily x3 days vitamin b6 50 mg oral tablet (3 sources) Start: 06-17-2018 take 100 mg by mouth every week Pyridoxine (Vitamin B6) Active 100 MG PO EVERY WEEK June 16, 2018 11:00pm Completed/Discontinued Medications Medication Drug Class(es) Dates Sig (Normalized) Sig (Original) ascorbic acid 500 mg oral tablet (4 sources) Vitamin C Start: 06-17-2018 End: 06-24-2023 take 1 tablet by mouth once daily Ascorbic Acid (Vitamin C) (Vitamin C) 500 MG tablet Discontinued 500 MG PO DAILY@0800 June 16, 2018 11:00pm June 24, 2023 7:18am cholecalciferol 0.05 mg oral capsule (4 sources) Vitamin D Start: 06-17-2018 End: 06-24-2023 take 2 capsules by mouth at lunch Cholecalciferol (Vitamin D3) (Vitamin D3) 2,000 UNIT capsule Discontinued 4000 UNIT PO WITH LUNCH June 16, 2018 11:00pm June 24, 2023 7:19am Fish,Bora,Flax Oils-Om3,6,9no1 ([place] 3-6-9) 1,200 mg capsule (1 source) Start: 02-22-2023 End: 06-24-2023 take 1 capsule by mouth once daily Fish,Bora,Flax Oils-Om3,6,9no1 ([place] 3-6-9) 1,200 mg capsule Discontinued 1 CAP PO DAILY February 21, 2023 11:00pm June 24, 2023 7:19am Garlic Extract (4 sources) Non-Standardized Food Allergenic Extract Start: 09-23-2018 End: 06-24-2023 take 1 tablet by mouth once daily Garlic Extract (Garlipure) 600 MG tablet Discontinued 600 MG PO DAILY September 23, 2018 12:00am June 24, 2023 7:19am Start: 09-23-2018 take 1 tablet by kadeem once daily Garlic Extract (Garlipure) 600 MG tablet Active 600 MG PO DAILY September 23, 2018 12:00am Start: 09-23-2018 take 1 tablet by kadeem th once daily Garlic Extract (Garlipure) 600 MG tablet Active 600 MG PO DAILY September 23, 2018 1:00am Lactobacillus Combination No.4 (Probiotic) 1 EACH capsule (4 sources) Start: 06-17-2018 End: 06-24-2023 take 1 capsule by mouth once daily Lactobacillus Combination No.4 (Probiotic) 1 EACH capsule Discontinued 1 EACH PO DAILY June 16, 2018 11:00pm June 24, 2023 7:19am Start: 06-17-2018 take 1 capsule by mo uth once daily Lactobacillus Combination No.4 (Probiotic) 1 EACH capsule Active 1 EACH PO DAILY June 16, 2018 11:00pm Start: 06-17-2018 take 1 capsule by mo uth once daily Lactobacillus Combination No.4 (Probiotic) 1 EACH capsule Active 1 EACH PO DAILY June 17, 2018 12:00am vitamin e 180 mg oral tablet (4 sources) Start: 06-17-2018 End: 06-24-2023 take 400 [IU] by mouth once daily Vitamin E Succinate Discontinued 400 UNIT PO DAILY June 16, 2018 11:00pm June 24, 2023 7:19am Problems Active Problems Problem Classification Problem Date Documented Da te Episodic/Chronic Menopausal disorders (4 sources) Atrophy of vagina; 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 atrophic vaginitis] 09-26-2018 Chronic Past or Other Problems Problem Classification Problem Date Documented Da te Episodic/Chronic Allergic reactions (1 source) Contact dermatitis due to plants; Translations: [Unspecified contact dermatitis due to plants, except food] 06-24-2023 Episodic Other and unspecified benign neoplasm (1 source) History of adenomatous polyp of colon; Translations: [Personal history of colonic polyps] 04-02-2023 Episodic Other diseases of bladder and urethra (4 sources) Urethral caruncle; Translations: [Urethral caruncle] 09-26-2018 Episodic Other screening for suspected conditions (not mental disorders or infectious disease) (1 source) Patient encounter status; Translations: [Encounter for screening for malignant neoplasm of colon] 02-22-2023 Episodic Results Test Name Value Interpretation Reference Range Facility Urgent Care Visit Reporton 0 11-23-2024 Urgent Care Visit Report [facility] [address] , [address] [place] [address] OFFICE VISIT Date of Service: 11/23/24 MR#: [id number] Acct: [id number] Name: NIKOLAY MANRIQUEZ Rep #: [id number] : 1950 Provider: CALE Ariza Age/Sex: 73/F Location: [facility] [place] Status: Signed Intake Vital Signs 06/24/23 08:17 11/23/24 12:17 Height 5 ft 5 in 5 ft 5 in Weight: 181 lb 8 oz BMI 30.2 BP 120/80 Position Sitting Pulse 67 Temp 97.8 F Temp Source Oral Pulse Oximetry (%) 96 Oxygen Delivery Method room air Intake Visit Reasons: SINUS DRAINAGE AND ST Accompanied by: Self Allergies sulfamethoxazole (From Bactrim) Allergy (Unknown, Verified 11/23/24 12:16) Other trimethoprim (From Bactrim) Allergy (Unknown, Verified 11/23/24 12:16) Other cephalexin (From Keflex) Allergy (Verified 11/23/24 12:16) Rash diphenhydramine (From Benadryl) Allergy (Verified 11/23/24 12:16) Rash nitrofurantoin (From Macrobid) Allergy (Verified 11/23/24 12:16) Other Sulfa (Sulfonamide Antibiotics) Allergy (Verified 11/23/24 12:16) Chest tightness Medications ???Medication ???Instructions ???Recorded ???Confirmed ???Type azithromycin 250 mg tablet 250 mg PO .COMPLEX #12 tabs 11/23/24 11/23/24 Rx Have you fallen in the past year?: Yes Nurse's Note: Patient has sinus drainage and ST that has been going on for Months. Patient states yesterday it was more red. [facility] Medical History (Updated 11/22/23 @ 08:59 by John MADSEN PA) Contact dermatitis due to plant Wears dentures Wears glasses Post-menopausal High cholesterol Diverticulosis Non-smoker History of stress test Hx of adenomatous polyp of colon Surgical History History of colonoscopy Family History Brother Colon cancer Sister Breast cancer Father CKD (chronic kidney disease) Dialysis patient Mother Hx of CABG Diabetes Glaucoma Social History household members: other details: 2 sisters housing: house current occupational status: employed Smoking Status: Never smoker alcohol intake: never HPI HPI Details: NIKOLAY MANRIQUEZ, is a 73 F who presents to the office today for [facility] at [facility] for approximately 2-3 month history of progressively worsening forehead and facial pressure/congestion with purulent postnasal drip/cough. Nonsmoker. No complaints of fever, chills, myalgias, fatigue, runny nose, or nausea/vomiting/diar lindsey. No complaints of chest pain/shortness of breath/dyspnea on exertion. No close contacts with similar complaints. Declining all POC screening upon offering. No other associated symptoms and no other alleviating/aggravat ing factors. ROS Const Constitutional: No other (as above) Exam Const General: cooperative, healthy appearing and no acute distress Nutritional Appearance: average body habitus Orientation: alert, awake and oriented x3 HENMT Head: normal to inspection Ears: hearing grossly normal bilaterally, external ears normal, TM's normal bilaterally and EAC's normal Nose: external nose normal, nares normal, septum normal and no nasal discharge Face and sinus: normal facial exam, sinuses nontender (Though bilateral maxillary fullness to palpation) and face symmetric Mouth: oral mucosae normal, lip normal, tongue normal and oropharynx normal Throat: posterior oropharynx normal, tonsils normal, uvula midline and postnasal drainage (Purulent) Eyes General: appearance normal, both eyes and all related structures Neck Neck: normal visual inspection, full ROM, no meningeal signs, supple and lymphadenopathy (Bilateral anterior cervical lymph node swelling/tender to palpation) Neck mass: No Thyroid: thyroid normal Chest Chest palpation inspection: normal inspection of the chest Resp Effort Inspection: normal respiratory effort and able to speak in complete sentences Auscultation: Bilateral: Clear to Auscultation Cardio Palpation: normal PMI Rate: regular rate Rhythm: regular rhythm Heart Sounds: S1 normal, S2 normal, no gallops, no murmurs and no rubs Pulses: radial pulses present GI Inspection: normal to inspection Skin General: no rashes or lesions noted Neuro General: patient alert, patient awake and patient oriented x3 Cognition: normal cognition Speech: speech normal Psych Appearance: grossly normal Mental Status: mental status grossly normal Mood: congruent mood Affect: normal affect Speech and Movement: speech and movement normal Attitude: cooperative Diagnoses Acute maxillary sinusitis, unspecified J01.00 Assessment and Plan Assessment and Plan (1) Acute maxillary sinusitis, unspecified: Status: Acute (more content not included)... Normal [facility] Absolute lymphocyte countOrd ered By: Dr. Baer on 01-11-2023 Lymphocytes Auto (Unsp spec) [#/Vol] 2.20 10*3/uL 0.83-4.51 [facility] Basophil percentageOrdered B y: Dr. Baer on 01-11-2023 Basophils/100 WBC (Bld) 0.8 % 0-1 [facility] Bilirubin [Mass/Vol] 0.70 mg/dL 0.20-1.00 [facility] Comment on above: For patients on eltr ombopag therapy, use of Dimension [place] TBIL is not recommended. Chloride [Moles/Vol] 104 mmol/L 98-107 [facility] Cholesterol [Mass/Vol] 238 mg/dL <200 [facility] Comment on above: <200 mg/dL Desirable 200-240 mg/dL Borderline >240 mg/dL High Risk Eosinophils/100 WBC (Bld) 2.7 % 0-5 [facility] Glucose [Mass/Vol] 86 mg/dL 74-106 [facility] Neutrophils (Bld) [#/Vol] 2.0 10*3/uL 2.0-7.7 [facility] Neutrophils/100 WBC (Bld) 42.2 % 47-70 [facility] Potassium [Moles/Vol] 3.7 mmol/L 3.5-5.1 [facility] Protein [Mass/Vol] 7.4 g/dL 6.4-8.2 [facility] Sodium [Moles/Vol] 139 mmol/L 136-145 [facility] Triglyceride [Mass/Vol] 224 mg/dL <199 [facility] Comment on above: The drugs N-Acetylcy steine and Metamizole may falsely depress this assay.Serum Triglycerides Reference Interval Normal <150 mg/dL Borderline high 150 - 199 mg/dL High 200 - 499 mg/dL Very High > or = 500 mg/dL WBC (Bld) [#/Vol] 4.8 10*3/uL 4.4-11.0 [facility] Blood erythrocytes count (nu mber/volume)Ordered By: Dr. Baer on 01-11-2023 RBC (Bld) [#/Vol] 5.05 10*6/uL 4.2-5.4 [facility] Blood hemoglobin measurement (mass/volume)Ordered By: Dr. Baer on 01-11-2023 Hemoglobin (Bld) [Mass/Vol] 15.3 g/dL 12.0-15.0 [facility] Blood lymphocytes/100 leukoc ytesOrdered By: Dr. Baer on 01-11-2023 Lymphocytes/100 WBC (Bld) 46.0 % 19-41 [facility] Blood monocytes/100 leukocyt esOrdered By: Dr. Baer on 01-11-2023 Monocytes/100 WBC (Bld) 7.9 % 0-10 [facility] Blood platelet mean volumeOr dered By: Dr. Baer on 01-11-2023 Platelet mean volume (Bld) [Entitic vol] 11.1 fL 6.2-12.0 [facility] Determination of erythrocyte mean corpuscular volume (MCV)Ordered By: Dr. Baer on 01-11-2023 MCV (RBC) [Entitic vol] 88.7 fL 81-99 [facility] Hematocrit Auto (Bld) [Volum e fraction]Ordered By: Dr. Baer on 01-11-2023 Hematocrit (Bld) [Volume fraction] 44.8 % 37-47 [facility] Laboratory - Chemistry and C hemistry - challengeOrdered By: Dr. Baer on 01-11-2023 ALP [Catalytic activity/Vol] 84 U/L 45-117 [facility] ALT [Catalytic activity/Vol] 27 U/L 13-56 [facility] CO2 [Moles/Vol] 27.0 mmol/L 21.0-32.0 [facility] Globulin (S) [Mass/Vol] 3.5 g/dL 2.2-4.2 [facility] Urea nitrogen/Creatinine [Mass ratio] 15.3 mg/mg 10-20 [facility] Laboratory - Hematology and Cell countsOrdered By: Dr. Baer on 01-11-2023 Erythrocyte distribution width (RBC) [Entitic vol] 40.7 fL 35.1-43.9 [facility] Erythrocyte distribution width (RBC) [Ratio] 12.5 % 11.6-14.6 [facility] Immature granulocytes/100 WBC (Bld) 0.400 % 0.0-0.9 [facility] Comment on above: IG% - Immature Granu locytes (promyelocytes, myelocytes and metamyelocytes) > 1% indicates that a LEFT SHIFT is Present. MCH (RBC) [Entitic mass] 30.3 pg 27.0-32.0 [facility] Nucleated RBC/100 WBC (Bld) [Ratio] 0 % 0-5 [facility] MCHC Auto (RBC) [Mass/Vol]Or dered By: Dr. Baer on 01-11-2023 MCHC (RBC) [Mass/Vol] 34.2 g/dL 32-36 [facility] No Panel InformationOrdered By: Dr. Baer on 01-11-2023 Estimated GFR (MDRD) Amer 102 mL/min >60 [facility] Comment on above: GFR Calc Estimated GFR (MDRD) Non-Af Amer 85 mL/min >60 [facility] Comment on above: Non- GFR Calc Thyroid Stimulating Hormone (TSH) 0.85 uIU/mL 0.358-3.74 [facility] Platelets bldOrdered By: Dr. Baer on 01-11-2023 Platelets (Bld) [#/Vol] 261 10*3/uL 150-450 [facility] Serum or plasma albumin elia urement (mass/volume)Ordered By: Dr. Baer on 01-11-2023 Albumin [Mass/Vol] 3.9 g/dL 3.2-5.0 [facility] Serum or plasma albumin/glob ulin mass ratioOrdered By: Dr. Bear on 01-11-2023 Albumin/Globulin [Mass ratio] 1.1 {ratio} 0.9-2.4 [facility] Serum or plasma calcium elia urement (mass/volume)Ordered By: Dr. Baer on 01-11-2023 Calcium [Mass/Vol] 9.2 mg/dL 8.5-10.1 [facility] Serum or plasma cholesterol in HDL measurement (mass/volume)Ordered By: Dr. Baer on 01-11-2023 Cholesterol in HDL [Mass/Vol] 40 mg/dL >40 [facility] Comment on above: The drugs N-Acetylcy steine and Metamizole may falsely depress this assay. Reference Range HDL <40 mg/dL Low HDL Cholesterol HDL >or= 60 mg/dL High HDL Cholesterol Serum or plasma cholesterol in VLDL measurement (mass/volume)Ordered By: Dr. Baer on 01-11-2023 Cholesterol in VLDL [Mass/Vol] 45 mg/dL 5-40 [facility] Serum or plasma creatinine m easurement (mass/volume)Ordered By: Dr. Baer on 01-11-2023 Creatinine [Mass/Vol] 0.72 mg/dL 0.55-1.02 [facility] Comment on above: The validity of the calculated GFR & GFRAA in patients over 70 years has not been determined. Clinical correlation is essential. Serum or plasma low density lipoprotein (LDL) cholesterol measurement (mass/volume)Ordered By: Dr. Baer on 01-11-2023 Cholesterol in LDL [Mass/Vol] 153 mg/dL 0-130 [facility] Serum or plasma urea nitroge n measurement (mass/volume)Ordered By: Dr. aBer on 01-11-2023 Urea nitrogen [Mass/Vol] 11 mg/dL 7-18 [facility] Thin prep Papanicolaou smear with manual screeningOrdered By: Dr. Baer on 01-11-2023 Thin prep Papanicolaou smear with manual screening 22 U/L 15-37 [facility] Thin prep Papanicolaou smear with manual screening 8 5-15 [facility] Serum Treponema species anti body detectionon 06-04-2022 Treponema sp Ab Ql (S) Non-Reactive [facility] Work Phone: Serum heterophile antibody d etectionon 06-04-2022 Heterophile Ab Ql (S) Negative Negative [facility] Work Phone: Absolute lymphocyte counton 05-30-2022 Lymphocytes Auto (Unsp spec) [#/Vol] 1.80 10*3/uL 0.83-4.51 [facility] Work Phone: Basophil percentageon 2021 Basophils/100 WBC (Bld) 0.5 % 0-1 [facility] Work Phone: Eosinophils/100 WBC (Bld) 0.7 % 0-5 [facility] Work Phone: Neutrophils (Bld) [#/Vol] 3.8 10*3/uL 2.0-7.7 [facility] Work Phone: Neutrophils/100 WBC (Bld) 62.0 % 47-70 [facility] Work Phone: WBC (Bld) [#/Vol] 6.1 10*3/uL 4.4-11.0 [facility]: Blood erythrocytes count (nu mber/volume)on 05-30-2022 RBC (Bld) [#/Vol] 5.15 10*6/uL 4.2-5.4 [facility]: Blood hemoglobin measurement (mass/volume)on 05-30-2022 Hemoglobin (Bld) [Mass/Vol] 15.2 g/dL 12.0-15.0 [facility] Work Phone: Blood lymphocytes/100 leukoc yteson 05-30-2022 Lymphocytes/100 WBC (Bld) 29.7 % 19-41 [facility] Work Phone: Blood monocytes/100 leukocyt eson 05-30-2022 Monocytes/100 WBC (Bld) 6.8 % 0-10 [facility] Work Phone: Blood platelet mean volumeon 05-30-2022 Platelet mean volume (Bld) [Entitic vol] 11.5 fL 6.2-12.0 [facility] Work Phone: Determination of erythrocyte mean corpuscular volume (MCV)on 05-30-2022 MCV (RBC) [Entitic vol] 87.8 fL 81-99 [facility] Work Phone: Hematocrit Auto (Bld) [Volum e fraction]on 05-30-2022 Hematocrit (Bld) [Volume fraction] 45.2 % 37-47 [facility] Work Phone: Laboratory - Hematology and Cell countson 05-30-2022 Erythrocyte distribution width (RBC) [Entitic vol] 39.9 fL 35.1-43.9 [facility] Work Phone: Erythrocyte distribution width (RBC) [Ratio] 12.4 % 11.6-14.6 [facility] Work Phone: Immature granulocytes/100 WBC (Bld) 0.300 % 0.0-0.9 [facility] Work Phone: Comment on above: IG% - Immature Granu locytes (promyelocytes, myelocytes and metamyelocytes) > 1% indicates that a LEFT SHIFT is Present. MCH (RBC) [Entitic mass] 29.5 pg 27.0-32.0 [facility] Work Phone: Nucleated RBC/100 WBC (Bld) [Ratio] 0 % 0-5 [facility] Work Phone: MCHC Auto (RBC) [Mass/Vol]on 05-30-2022 MCHC (RBC) [Mass/Vol] 33.6 g/dL 32-36 [facility] Work Phone: No Panel Informationon 05-30 Estimated GFR (MDRD) Amer 113 mL/min >60 [facility] Work Phone: Comment on above: GFR Calc Estimated GFR (MDRD) Non-Af Amer 94 mL/min >60 [facility] Work Phone: Comment on above: Non- GFR Calc Platelets bldon 05-30-2022 Platelets (Bld) [#/Vol] 238 10*3/uL 150-450 [facility] Work Phone: Serum or plasma C reactive p rotein measurement (mass/volume)on 05-30-2022 CRP [Mass/Vol] mg/L 0.0-3.0 [facility] Work Phone: Comment on above: C-Reactive Protein ( CRP) provides useful information for thediagnosis, therapy and monitoring of inflammatory processesand associated diseases. For the evaluation of Relative Riskfor Cardiovascular Disease, a High Sensitivity CRP (HSCRP)should be ordered. Serum or plasma creatinine m easurement (mass/volume)on 05-30-2022 Creatinine [Mass/Vol] 0.66 mg/dL 0.55-1.02 [facility] Work Phone: Comment on above: The validity of the calculated GFR & GFRAA in patients over 70 years has not been determined. Clinical correlation is essential. Encounters Encounter Date Encounter Type Care Provider Facility Start: 11-23-2024 End: 11-23-2024 ambulatory Miguelito MADSEN Facility:[facility] [place] Start: 10-29-2023 End: 10-29-2023 ambulatory [facility] Work Phone: Start: 10-29-2023 End: 10-29-2023 Patient encounter procedure [facility] Work Phone: Start: 01-11-2023 End: 01-11-2023 [facility] Work Phone: Start: 01-11-2023 End: 01-11-2023 Patient encounter procedure [facility] Start: 06-04-2022 End: 06-04-2022 Patient encounter procedure [facility] Start: 05-30-2022 End: 05-30-2022 Patient encounter procedure [facility] Procedures Date Procedure Procedure Detail Performing Clinician Start: 01-11-2023 Radiography of nasal sinuses Plan of Treatment Date Care Activity Detail Author Mumps virus IgG Ab [Units/volume] in [facility] Work Phone: Mumps virus IgM Ab [Units/volume] in Seru [facility] Work Phone: Payers Date Payer Category Payer Self-pay [id number] 2022 Private Health Insurance [id number] Medicare [id number] Unknown [id number] Social History Date Type Detail Facility Start: 09-26-2018 End: 06-24-2023 Tobacco smoking status NHIS Unknown if ever smoked [facility] Start: 1950 Sex Assigned At Female [facility] Evaluation note Note Date & Type Note Facility Evaluation note No assessment information availa ble [facility] Work Phone: Advance Directives No Advanced Directives Records Found Advance Directive Response Recorded Date/ Time Living Will No September 23 2:57pm Power of Bending Machine Operator No September 23, 2018 2:57pm Advance Directive Response Recorded Date/ Time Living Will No September 23 1:57pm Power of Bending Machine Operator No September 23, 2018 1:57pm Advance Directive Response Recorded Date/ Time Living Will No March 28, 2023 1 0:40am Power of Bending Machine Operator No March 28, 2023 10:40am Chief Complaint and Reason for Visit Chief Complaint LABS AND XRAY- SINUS CONGESTION Chief Complaint CHEST PAIN Family History No Family History Records Found Relationship Condition Age at Onset Recorded Date/T darlene brother Malignant neoplasm of colon Unknown sister Malignant neoplasm of breast Unknown father Chronic kidney disease Unknown Dialysis patient Unknown mother History of coronary artery bypass surgery Unknown Diabetes mellitus Unknown Glaucoma Unknown Summary Purpose Additional Source Comments Goals (unrecognized section and content) Goals may be documented in a n alternate sectionGoals may be documented in an alternate sectionGoals may be documented in an alternate sectionGoals may be documented in an alternate section Care Teams (unrecognized sec tion and content) Team Status: Active Member Role Status Dates Dr. Phillip Baer MD Family Provider Active Dr. Phillip Baer MD Primary Care Provider Active Team Status: Inactive Member Role Status Dates Dr. Phillip Baer MD Primary Care Provide r, Attending Provider, Referring Provider Active Team Status: Inactive Member Role Status Dates Dr. Phillip Baer MD Primary Care Provider Active Dr. Melodie Mcneil MD Attending Provider, Referring P reginaldo Active INFORMATION SOURCE (unrecogn ized section and content) DATE CREATED AUTHOR 11/29/[address] [facility] FOR RECORDS PERTAINING TO PATIENTS WHO ARE OR HAVE BEEN ENROLLED IN A CHEMICAL DEPENDENCY/SUBSTANCEABUSE PROGRAM, SOME INFORMATION MAY BE OMITTED. This clinical summary was aggregated from multiple sources. Caution should be exercised in using it in the provision of clinical care. This summary normalizes information from multiple sources, and as a consequence, information in this document may materially change the coding, format and clinical context of patient data. In addition, data may be omitted in some cases. CLINICAL DECISIONS SHOULD BE BASED ON THE PRIMARY CLINICAL RECORDS. [facility], [facility]. provides no warranty or guarantee of the accuracy or completeness of information in this document.
[2025-05-12 23:02] LABS: Hemoglobin A1c 5.9 % (<=5.6)
== END | disposition home or self-care (01) ==
LOC: MFPLAB 09:48
PROVIDERS: PCP Family Medicine
DX: Z00.00 Encounter for general adult medical examination without abnormal findings (principal)
CPT/HCPCS: 36415; 80048; 83036; 84443; 85025